=== PATIENT | male | born 1985 | race Caucasian/White ===

== ENCOUNTER 2023-07-13 07:35 | Outpatient (CLI) | payer OTHER, SELFPAY ==
--- NOTE | 2023-07-13 | ECHO_ITS ---
Patient Info Name: Baudilio Serra Age: 37 years : 1985 Gender: Male Ht: 70 in Wt: 230 lbs BSA: 2.30 m2 HR: 63 bpm BP: 139 / 93 mmHg Technical Quality: Good Exam Date: 07/13/2023 8:03 AM Exam Location: Echo Lab Patient Status: Outpatient Admit Date: 07/13/2023 Staff Ordering Physician: Buck Hernandez MD Bridge Instructor: Sharlene Stock RDCS Attending Provider: Buck Hernanedz MD Referring Physician: David HOLT; Exam Type: CA echo doppler color flow Study Info Indications R94.31 - Abnormal electrocardiogram ECG EKG Complete two-dimensional, color flow and Doppler transthoracic echocardiogram is performed. Summary 1. Complete two-dimensional, color flow and Doppler transthoracic echocardiogram is performed. 2. Left ventricular chamber dimension is normal. 3. Left ventricular systolic function is normal, estimated at 60-65%. 4. The left ventricular diastolic function is normal. 5. E/e' 5 is not elevated. 6. Global longitudinal strain is normal at -18.9%. 7. There is trace tricuspid valve regurgitation. 8. No pulmonary hypertension, estimated pulmonary arterial systolic pressure is 25 mmHg. 9. There is trace pulmonic regurgitation. Left Ventricle E/e' 5 is not elevated. Global longitudinal strain is normal at -18.9%. Left ventricular chamber dimension is normal. Left ventricular systolic function is normal, estimated at 60-65%. The left ventricular diastolic function is normal. Right Ventricle Right ventricular systolic function is normal and with normal TAPSE 2.3 cm. Right ventricular chamber dimension is normal. Left Atria Left atrial chamber dimension is normal. Right Atria Right atrial chamber dimension is normal. Aortic Valve The aortic valve is trileaflet. There is no aortic valve stenosis. There is no aortic valve regurgitation. Pulmonic Valve There is trace pulmonic regurgitation. Mitral Valve There is no mitral valve stenosis. There is no mitral valve regurgitation. Tricuspid Valve There is trace tricuspid valve regurgitation. No pulmonary hypertension, estimated pulmonary arterial systolic pressure is 25 mmHg. Pericardium/Pleural There is no pericardial effusion. Inferior Vena Cava Normal inferior vena cava with >50% collapse upon inspiration consistent with normal right atrial pressure, 5 mmHg. Aorta The aortic root size at the sinus of Valsalva is normal. Left Ventricular Outflow Tract Name Value Normal LVOT 2D LVOT Diameter 2.2 cm LVOT Doppler LVOT Peak Gradient 4 mmHg LVOT Mean Gradient 2 mmHg LVOT VTI 20 cm LVOT VTI/AV VTI Ratio 0.9 LVOT Stroke Volume 72 ml LVOT CO 4.9 l/min LVOT CI 2.1 l/min/m2 Pulmonic Valve Name Value Normal RVOT Doppler RVOT Peak Gradient 2 mmHg
--- NOTE | 2023-07-13 | EST_ITS ---
Patient Info Name: Baudilio Serra Age: 37 years : 1985 Gender: Male Ht: 70 in Wt: 230 lbs BSA: 2.30 m2 HR: 57 bpm BP: 141 / 73 mmHg Exam Date: 07/13/2023 8:37 AM Exam Location: Echo Lab Patient Status: Outpatient Admit Date: 07/13/2023 Staff Ordering Physician: Buck Hernandez MD Attending Provider: Buck Hernandez MD Exercise Technologist: Marlys Zhang RUST Exercise Physician: Gallito Rowe DO Exam Type: CA stress test treadmill Study Info A treadmill exercise stress test was performed. Summary 1. 1. Negative Calvin exercise stress test for ischemic ST changes by ECG criteria. 2. 2. Good functional capacity, achieving 12 METs of workload. 3. 3. Baseline hypertension. 4. 4. Appropriate HR response to exercise. 5. 5. Appropriate HR recovery at 1 minute post exercise. 6. 6. No imaging with stress testing. 7. 7. Patient informed of the above results. Protocol: Calvin Stress ECG Details Stage: REST Duration (min): 1 min : 18 sec Speed (mph): 0.0 Grade (%): 0 HR (bpm): 56 SBP (mmHg): 141 DBP (mmHg): 73 METS: --- Stage: REST Duration (min): 5 min : 32 sec Speed (mph): 0.0 Grade (%): 0 HR (bpm): 62 SBP (mmHg): 141 DBP (mmHg): 73 METS: --- Stage: STAGE 1 Duration (min): 1 min : 0 sec Speed (mph): 1.7 Grade (%): 10 HR (bpm): 95 SBP (mmHg): 141 DBP (mmHg): 73 METS: --- Stage: STAGE 1 Duration (min): 2 min : 0 sec Speed (mph): 1.7 Grade (%): 10 HR (bpm): 102 SBP (mmHg): 141 DBP (mmHg): 73 METS: --- Stage: STAGE 1 Duration (min): 3 min : 0 sec Speed (mph): 1.7 Grade (%): 10 HR (bpm): 103 SBP (mmHg): 152 DBP (mmHg): 57 METS: --- Stage: STAGE 2 Duration (min): 1 min : 0 sec Speed (mph): 2.5 Grade (%): 12 HR (bpm): 110 SBP (mmHg): 152 DBP (mmHg): 57 METS: --- Stage: STAGE 2 Duration (min): 2 min : 0 sec Speed (mph): 2.5 Grade (%): 12 HR (bpm): 121 SBP (mmHg): 154 DBP (mmHg): 59 METS: --- Stage: STAGE 2 Duration (min): 3 min : 0 sec Speed (mph): 2.5 Grade (%): 12 HR (bpm): 127 SBP (mmHg): 154 DBP (mmHg): 59 METS: --- Stage: STAGE 3 Duration (min): 1 min : 0 sec Speed (mph): 3.4 Grade (%): 14 HR (bpm): 134 SBP (mmHg): 158 DBP (mmHg): 56 METS: --- Stage: STAGE 3 Duration (min): 2 min : 0 sec Speed (mph): 3.4 Grade (%): 14 HR (bpm): 140 SBP (mmHg): 158 DBP (mmHg): 56 METS: --- Stage: STAGE 3 Duration (min): 3 min : 0 sec Speed (mph): 3.4 Grade (%): 14 HR (bpm): 154 SBP (mmHg): 196 DBP (mmHg): 71 METS: --- Stage: STAGE 4 Duration (min): 1 min : 0 sec Speed (mph): 4.2 Grade (%): 16 HR (bpm): 161 SBP (mmHg): 196 DBP (mmHg): 71 METS: --- Stage: STAGE 4 Duration (min): 1 min : 30 sec Speed (mph): 4.2 Grade (%): 16 HR (bpm): 179 SBP (mmHg): 196 DBP (mmHg): 71 METS: ---
--- NOTE | 2023-07-18 15:55 | WPDHOLTEREM ---
Holter/Event Monitor Holter/Event Monitor Date of procedure: 07/13/23 Holter/Event Procedure: 24 Hr Holter Monitor Indications: Abnormal EKG Conclusion: 1. 24 hour holter monitor on 07/13/23. 2. Underlying rhythm is sinus rhythm. HR range 44-108 bpm; average HR 69 bpm. HR at 44 bpm was at 03:14. 3. There are 2 premature supraventricular complexes and 1 supraventricular couplet. No supraventricular tachycardia. 4. No premature ventricular complexes. No ventricular tachycardia. 5. No sinoatrial or atrioventricular blocks. No significant pauses greater than 2 seconds. 6. Patient reports symptoms of fluttering which demonstrate sinus rhythm, HR range 78-79 bpm.
== END 2023-07-13 07:36 | disposition home or self-care (01) ==
PROVIDERS: PCP Internal Medicine; Visit Provider Internal Medicine
DX: R93.1 Abnormal findings on diagnostic imaging of heart and coronary circulation (principal); R94.31 Abnormal electrocardiogram [ECG] [EKG]; I10 Essential (primary) hypertension; I07.1 Rheumatic tricuspid insufficiency; I37.1 Nonrheumatic pulmonary valve insufficiency
CPT/HCPCS: 93017; 93225; 93226; 93306

== ENCOUNTER 2023-08-03 08:31 | Outpatient (CLI) | payer OTHER, SELFPAY ==
--- NOTE | ~2023-08-03 | XR_ITS ---
EXAMINATION: XR UGIAC w small bowel DATE: 08/03/2023 09:56 INDICATION: Gastroesophageal reflux disease, diaphragmatic hernia and intermittent episodic diarrhea and constipation. TECHNIQUE: The patient drank thick barium, gas-producing crystals, and thin barium. Conventional supi ne abdomen radiographs and fluoroscopic spot radiographs of the esophagus, stomach, and proximal smal l bowel were obtained. Additional overhead radiographs were obtained during the transit through the s mall bowel. Spot fluoroscopic images of the small bowel were obtained upon contrast reaching the cec um. Fluoroscopy exposure time was 2.1 minutes. A total of 598 fluoroscopic images and 4 overhead radi ographs were obtained. COMPARISON: None. FINDINGS: The esophagus is normal without mass or stricture. Esophageal motility is normal. There is no hiatal hernia. There was no gastroesophageal reflux with provocative maneuvers. Small diverticulum arising f rom the third portion of the duodenum. The stomach and proximal small bowel are otherwise normal. Transit time from the stomach to proximal colon was approximately 30 minutes. There is normal caliber and mucosal fold pattern throughout the small bowel. Terminal ileum is normal. No tethering or abn ormal mass effect observed upon the small bowel with real-time fluoroscopy. IMPRESSION: 1. Small diverticulum arising from third portion of the duodenum. Otherwise normal upper GI and small bowel follow-through study. Reviewed, dictated and finalized at location A. [employer] IMPRESSION: 1. Small diverticulum arising from third portion of the duodenum. Otherwise nor mal upper GI and small bowel follow-through study.
== END 2023-08-03 08:32 | disposition home or self-care (01) ==
LOC: ANHIMG 08:35
PROVIDERS: PCP Internal Medicine; Visit Provider Nurse Practitioner
DX: K57.10 Diverticulosis of small intestine without perforation or abscess without bleeding (principal); K21.9 Gastro-esophageal reflux disease without esophagitis; K22.2 Esophageal obstruction; K44.9 Diaphragmatic hernia without obstruction or gangrene
CPT/HCPCS: 74246; 74248

== ENCOUNTER 2023-09-07 08:41 | Outpatient (CLI) | payer OTHER, SELFPAY ==
--- NOTE | ~2023-09-07 | US_ITS ---
US abdomen limited DATE: 09/07/2023 10:13 INDICATION: Elevated liver enzymes TECHNIQUE: Real-time imaging and Doppler analysis of the liver, pancreas, gallbladder COMPARISON: None FINDINGS: The pancreas is not well demonstrated. Hepatic steatosis is suggested. Normal hepatopedal portal venous flow direction. No hepatic space-occ upying mass lesion is noted. No gallbladder wall thickening or gallstones or abnormal pericholecystic fluid collection. Negative s onographic Mckinney's sign. The common bile duct measures 2.7 mm, normal. IMPRESSION: Hepatic steatosis Normal gallbladder Suboptimal demonstration of the pancreas Reviewed, dictated and finalized at Location [facility]. Reviewed, dictated and finalized at location B.
== END 2023-09-07 08:42 | disposition home or self-care (01) ==
PROVIDERS: PCP Internal Medicine; Visit Provider Internal Medicine
DX: K76.0 Fatty (change of) liver, not elsewhere classified (principal); R74.01 Elevation of levels of liver transaminase levels
CPT/HCPCS: 76705

== ENCOUNTER 2023-12-12 09:22 | Emergency (ER) | payer OTHER, SELFPAY ==
--- NOTE | ~2023-12-12 | CT_ITS ---
EXAMINATION: CT brain wo con DATE: 12/12/2023 09:52 INDICATION: Headache post frontal head injury 2 days prior TECHNIQUE: Computed tomography (CT) of the head was performed without intravenous contrast. Sagittal and coronal reconstructions were performed. The mA was adjusted according to patient size. Iterative reconstruction technique was employed. The dose-length product was 605.33 mGy-cm. COMPARISON: None FINDINGS: No fracture. No acute intracranial hemorrhage, acute infarction or abnormal extra axial fluid collect ion. Ventricles are normal and symmetric. No mass/mass effect. The orbits, paranasal sinuses and mast oid air cells are normal. IMPRESSION: 1. Normal head CT. No fracture or acute intracranial process. Reviewed, dictated and finalized at location B.
[2023-12-12 09:22] VITALS: BP 130/84; PULSE 88; RESP 18; TEMP 36.3; O2SAT 94
--- NOTE | 2023-12-12 09:26 | ED.HA ---
HPI - Headache General Chief Complaint: Headache Stated Complaint: migraine; nausea/vomiting Time Seen by Provider: 12/12/23 09:25 Source: patient Mode of arrival: ambulatory Limitations: no limitations History of Present Illness HPI Narrative: year male with history anxiety GERD IBS sleep migraine she was diagnosed 18 years ago presents to the ER with a 3 day history of -- right frontal headache which started 3 days ago and responded to rizatriptan. His headache recurred again. is similar to his usual headache. In addition to headache he has photophobia. He had nausea with 3 episodes of vomiting this morning. No fever. No focal neuro deficits. MD elicited complaint: headache and migraine Pertinent past history: recent trauma ( He had right frontal trauma 2 days ago.) Onset (ago): day(s) ( Three days) Onset description: gradually Location: right Severity: moderate Quality & Timing: aching Exacerbating factors: light Relieving factors: dark room Context: occurred at rest Associated symptoms: nausea and vomiting Treatments prior to arrival: none Related Data Home Medications Medication Instructions Recorded Confirmed citalopram 10 mg tablet 10 mg PO DAILY 07/06/23 12/12/23 hydroxyzine HCl 25 mg tablet 25 mg PO TID PRN Headache 07/06/23 12/12/23 pantoprazole 40 mg tablet,delayed 40 mg PO QAM 07/06/23 12/12/23 release prazosin 2 mg capsule 2 mg PO QPM 07/06/23 12/12/23 propranolol 20 mg tablet 20 mg PO Q12H 07/06/23 12/12/23 rizatriptan 10 mg tablet See Rx Instructions PO .COMPLEX 07/06/23 12/12/23 Allergies Allergy/AdvReac Type Severity Reaction Status Date / Time No Known Allergies Allergy Verified 07/06/23 09:37 Review of Systems Review of Systems: All systems reviewed & are unremarkable except as noted in HPI and below Constitutional: Constitutional: Reports as per HPI and Reports no additional constitutional complaints Eyes: Eyes: Reports as per HPI and Reports no additional eye complaints ENT: Reports system reviewed and no additional complaints, except as documented and Reports as per HPI Cardiovascular: Cardiovascular: Reports as per HPI and Reports no additional cardiovascular complaints Respiratory: Respiratory: Reports as per HPI and Reports no additional respiratory complaints Gastrointestinal: Gastrointestinal: Reports as per HPI, Reports no additional gastrointestinal complaints, Reports nausea and Reports vomiting Genitourinary: Genitourinary: Reports no additional male genitourinary complaints and Reports as per HPI Musculoskeletal: Musculoskeletal: Reports no additional musculoskeletal complaints and Reports as per HPI Integumentary/Breasts: Skin/Breast: Reports system reviewed and no additional complaints, except as docu and Reports as per HPI Neurologic: Reports system reviewed and no additional complaints, except as documented, Reports as per HPI and Reports headache(s) Psychiatric: Psychiatric: Reports no additional psychiatric complaints and Reports as per HPI Endocrine: Endocrine: Reports no additional endocrine complaints and Reports as per HPI Hematologic/Lymphatic: Hematologic/Lymphatic: Reports no additional hematologic/lymphatic complaints and Reports as per HPI Allergic/Immunologic: Allergic/Immunologic: Reports no additional allergic/immunologic complaints and Reports as per HPI PMFSH Past Medical History Medical History Anxiety Hiatal hernia Irritable bowel syndrome with mixed bowel habits Schatzki's ring Sleep apnea Social History Social History Smoking status: Never smoker Exam Narrative: blood pressure is stable Const: General: healthy appearing Nutritional Appearance: well nourished Orientation/consciousness: patient oriented x3 Limitations: no limitations HENMT: Head: normal to inspection Ears: external ears normal Face/Nose
[2023-12-12] MEDS: PROCHLORPERAZINE EDISYLATE 10 MG/2 ML VIAL IM (09:50)
[2023-12-12] MEDS: KETOROLAC (*BKC) 60 MG/2 ML VIAL IM (09:50)
--- NOTE | 2023-12-12 10:43 | PC.NURSE ---
dr mancini in with pt.
[2023-12-12 10:44] VITALS: BP 112/57; PULSE 100; RESP 18; TEMP 36.6; O2SAT 98
== END 2023-12-12 10:44 | disposition home or self-care (01) ==
PROVIDERS: Emergency Provider Internal Medicine Critical Care Medicine; PCP Internal Medicine
DX: G43.909 Migraine, unspecified, not intractable, without status migrainosus (principal); Z79.899 Other long term (current) drug therapy
CPT/HCPCS: 70450; 90471; 96372; 99284; J0780; J1885

== ENCOUNTER 2023-12-26 21:34 | Emergency (ER) | payer OTHER, SELFPAY ==
[2023-12-26] VITALS (20 sets, daily range): BP systolic 123–163; BP diastolic 71–102; PULSE 41–82; RESP 13–24; TEMP 36.6; O2SAT 88–100
--- NOTE | ~2023-12-26 | CT_ITS ---
CORRECTED REPORT corrected exam description [facility] [place] 12/27/23 This report was recreated on 12/27/23. Original report was EXAMINATION: CTA brain carotid DATE: 12/26/2023 22:12 INDICATION: Right hemiparesis. TECHNIQUE: Computed tomographic angiography (CTA) of the head was performed without and with 100 mL Omnipaque-350 intravenous contrast. CTA of the neck was performed with intravenous contrast. Automated exposure control and iterative reconstruction technique were employed. The dose-length product was 1753.46 mGy- cm. Maximum intensity projection and volume rendered 3D-reconstructions were created by the technologist on a separate workstation. COMPARISON: Head CT 12/12/2023 FINDINGS: HEAD CTA: There is no intracranial hemorrhage, acute infarction, or abnormal intracranial mass lesion. The ventricles are normal in size. There is mild mucosal thickening in the paranasal sinuses. The orbits are normal. The mastoid air cells are normal. The vertebral arteries are codominant. There is no significant stenosis of basilar artery or the posterior cerebral arteries. There is no significant stenosis of the intracranial internal carotid arteries or anterior or middle cerebral arteries. Anterior communicating artery is normal. The posterior communicating arteries are normal. There is no aneurysm. NECK CTA: There are no pathologically enlarged lymph nodes. There is associated stenosis of the vertebral arteries. There is no significant plaque in the proximal internal carotid arteries. There is 0% stenosis of the proximal right internal carotid artery relative to normal distal artery lumen diameter (NASCET criteria). There is 0% stenosis of the proximal left internal carotid artery relative to normal distal artery lumen diameter. There is mild cervical spondylosis. IMPRESSION: 1. Normal brain. I called this result to Dr. Zepeda at 10:11 PM. 2. No aneurysm or significant intracranial arterial stenosis. 3. 0% stenosis of the proximal internal carotid arteries relative to normal distal artery lumen diameters (NASCET criteria). Reviewed, dictated and finalized at location E. MTDD IMPRESSION: 1. Normal brain. I called this result to Dr. Zepeda at 10:11 PM. 2. No aneurysm or significant intracranial arterial stenosis. 3. 0% stenosis of the proximal internal carotid arteries relative to normal dis alexa artery lumen diameters (NASCET criteria).
--- NOTE | 2023-12-26 21:37 | ED.NEUROSD ---
HPI - Neuro Symptoms/Deficit General Chief Complaint: Suspected CVA Stated Complaint: stroke like symtoms. Time Seen by Provider: 12/26/23 21:37 Source: patient Mode of arrival: ambulatory Limitations: no limitations History of Present Illness HPI Narrative: 38-year-old male a history of anxiety, migraine, GERD, IBS, ROMERO, Schatzki ring had 12/09--head injury which precipitated his migraine. 12/11-- He presented to the ER with right-sided headache and vomiting. This was different from his usual headache so he got a CT of the head which did not show any acute findings. He was discharged home. 12/13-- He went for work where he felt weak and had stroke-like symptoms. He had confusion, slurred speech and left-sided weakness. He was sent to [facility] where he had a CT / MRI did not show any acute findings. He was discharged after being admitted for 1 day. 12/18-- He went for work and had weakness, confusion possibly slurred speech. He saw his primary care physician Dr. Hernandez who advised to follow-up with [facility]. 12/23-- while showering he had left-sided weakness yesterday-- he was at work when he developed weakness and headache for which he was sent home early. Today-- patient had similar symptoms for which he went to Dr. Hernandez. He was started on topiramate 7:30 p.m.-- the patient developed tingling of the right side of the head with slurred speech. Subsequently the patient had generalized headache, Confusion and vomiting. He presented to the ER with the above symptoms. He had an NIHSS of 0. LKW-- 7:30 p.m. presented to the ED at 9:34 p.m. Onset (ago): hour(s) ( 2 hours) Time: 21:34 Last Observed Normal: 19:30 Timing confirmed by: spouse History of same: Yes Quality: weak and numb Relieving factors: none Exacerbating factors: none Context: gradual onset On Anticoagulants: No Associated symptoms: headaches and nausea/vomiting Treatments Prior to Arrival: none Related Data Home Medications Medication Instructions Recorded Confirmed citalopram 10 mg tablet 10 mg PO DAILY 07/06/23 12/26/23 hydroxyzine HCl 25 mg tablet 25 mg PO TID PRN Headache 07/06/23 12/26/23 pantoprazole 40 mg tablet,delayed 40 mg PO QAM 07/06/23 12/26/23 release prazosin 2 mg capsule 2 mg PO QPM 07/06/23 12/26/23 propranolol 20 mg tablet 20 mg PO Q12H 07/06/23 12/26/23 rizatriptan 10 mg tablet See Rx Instructions PO .COMPLEX 07/06/23 12/26/23 Allergies Allergy/AdvReac Type Severity Reaction Status Date / Time No Known Allergies Allergy Verified 12/26/23 22:11 Review of Systems Review of Systems: All systems reviewed & are unremarkable except as noted in HPI and below Constitutional: Constitutional: Reports as per HPI and Reports no additional constitutional complaints Eyes: Eyes: Reports as per HPI and Reports no additional eye complaints ENT: Reports system reviewed and no additional complaints, except as documented and Reports as per HPI Cardiovascular: Cardiovascular: Reports as per HPI and Reports no additional cardiovascular complaints Respiratory: Respiratory: Reports as per HPI and Reports no additional respiratory complaints Gastrointestinal: Gastrointestinal: Reports as per HPI and Reports no additional gastrointestinal complaints Genitourinary: Genitourinary: Reports no additional male genitourinary complaints and Reports as per HPI Musculoskeletal: Musculoskeletal: Reports no additional musculoskeletal complaints and Reports as per HPI Integumentary/Breasts: Skin/Breast: Reports system reviewed and no additional complaints, except as docu and Reports as per HPI Neurologic: Reports system reviewed and no additional complaints, except as documented and Reports as per HPI Comments: at 7:30 p.m. he had tingling on the right side with weakness, slurred speech and subsequently developed headache and vomiting. Psychiatric: Psychiatric: Reports no additional psychiatric
--- NOTE | 2023-12-26 21:39 | ECG_ITS ---
Test Date: 2023-12-26 21:40:11 Measurements Intervals [place] Rate: 58 P: 38 [place]: 158 QRS: 8 QRSD: 96 T: 21 QT: 376 QTc: 372 Interpretive Statements SINUS BRADYCARDIA BORDERLINE ECG No previous ECG available for comparison Electronically Signed On 12-27-2023 06:10:23 CDT by Gallito Rowe D.O.
[2023-12-26 21:41] LABS: Glucose Point of Care 88 mg/dl (65-105)
[2023-12-26 21:47] LABS: Basophils Absolute Auto 0.04 K/mm3 (0.00-0.10); Basophils Percent Auto 0.2 % (0.0-1.0); Eosinophils Absolute Auto 0.19 K/mm3 (0.02-0.50); Eosinophils Percent Auto 1.2 % (1.0-6.0); Hematocrit 40.9 % (40.0-54.0); Hemoglobin 14.1 g/dL (14.0-18.0); Immature Granulocyte Absolute 0.11 K/mm3 (0.00-0.00); Immature Granulocyte Percent A 0.7 % (0.0-0.0); Lymphocytes Absolute Auto 3.72 K/mm3 (1.10-4.50); Lymphocytes Percent Auto 22.9 % (18.0-42.0); Mean Corpuscular HGB Conc 34.5 g/dL (32-36); Mean Corpuscular Hemoglobin 30.2 pg (27.0-31.0); Mean Corpuscular Volume 87.6 fL (78.0-102.0); Mean Platelet Volume 9.3 fl (8.7-11.0); Monocytes Absolute Auto 1.09 K/mm3 (0.10-0.90); Monocytes Percent Auto 6.7 % (2.0-11.0); Neutrophils Absolute Auto 11.12 K/mm3 (1.70-7.20); Neutrophils Percent Auto 68.3 % (50.0-70.0); Platelet Count Result 265 K/mm3 (150-420); Red Blood Count 4.67 M/mm3 (4.70-6.10); Red Cell Distribution Width 12.3 % (11.6-14.4); White Blood Count 16.3 K/mm3 (4.8-10.8)
[2023-12-26 22:00] LABS: Partial Thromboplastin Time 27.3 Sec (23.9-30.70); Prothrombin Time 10.9 Seconds (9.50-12.1)
[2023-12-26 22:04] LABS: Alanine Aminotransferase 117 U/L (16-63); Albumin Level 4.1 g/dL (3.4-5.0); Alkaline Phosphatase 68 U/L (46-116); Anion Gap 10 mmol/L (4-12); Aspartate Amino Transferase 82 U/L (15-37); Bilirubin,Total 0.2 mg/dL (0.00-1.00); Blood Urea Nitrogen 11 mg/dL (7-18); Calcium 8.6 mg/dL (8.5-10.1); Carbon Dioxide 30 mmol/L (21-32); Chloride 102 mmol/L (98-108); Estimated CRCL calculation 92 ml/min; Estimated Glomerular Filt Rate > 60; Glucose 93 mg/dL (70-99); Osmolality Calculated 293 mOsm/kg (285-295); Potassium 3.7 mmol/L (3.5-5.1); Sodium 142 mmol/L (136-145); Total Protein 7.6 g/dL (6.4-8.2); Troponin I < 4.0 ng/L (0.00-60.4)
[2023-12-26] MEDS: ONDANSETRON INJ 4 MG/2 ML VIAL IV PUSH (22:37)
[2023-12-26] MEDS: HYDROmorphone HCL INJ (*CRX) 2 MG/ML VIAL 0.5 MG IM (22:37)
[2023-12-26] MEDS: LACTATED RINGERS 1,000 ML 999 ML IV CONT (22:37)
[2023-12-26] MEDS: GLUCAGON FOR INJ 1 MG VIAL IV PUSH (23:27)
[2023-12-27] VITALS (71 sets, daily range): BP systolic 100–155; BP diastolic 45–90; PULSE 42–96; RESP 11–32; TEMP 36.8; O2SAT 92–99
[2023-12-27] MEDS: KETOROLAC 30 MG/ML VIAL (*BKC) IV PUSH ×2 (01:19→05:14)
--- NOTE | 2023-12-27 01:25 | PC.NURSE ---
Spoke with mother of patient extensively about patients plan of care and medications. Educated on how the medications work and on admission process of other facilities. Biggest problem we are having at this time is finding a physician that will accept this patients case, due to his symptom improvement and negative work up.
--- NOTE | 2023-12-27 01:35 | PC.NURSE ---
ok with to continue to reach out to other facilities for possible admission.
--- NOTE | 2023-12-27 01:37 | PC.NURSE ---
Spoke with extensively about patient plan of care. insistent on having patient transferred to see a neurologist somewhere, she does not want to wait the 4-6 month time frame to get in to see one. Patient is to start on topamax for his migraines, however, insurance does not cover the extended release, so they are waiting on a prescription change to get his medication. is concerned that when he has his bouts of confusion during his migraines, that he will unsafely get out of the house and wander the streets or aspirate into his cpap while sleeping because of the amount that patient has been vomiting. She does not feel safe taking the patient home at this time.
[2023-12-27] MEDS: ACETAMINOPHEN 325 MG TABLET 650 MG PO (02:24)
--- NOTE | 2023-12-27 02:25 | PC.NURSE ---
DAYANARA Zepeda at bedside speaking extensively to patient and about plan of care. Dr. Clancy with Neurology with [facility] who refused the patient and is requesting patient to follow up outpatient. is still worried about how to care for patient at home with all of his symptoms. and patient further educated on complicated migraines and medications that are prescribed to help. still hopeful that [facility] will be able to give us a bed for this patient. Patient given more medications and pillows and repositioned for comfort.
[2023-12-27] MEDS: METOCLOPRAMIDE HCL INJ 10 MG/2 ML VIAL IV PUSH (02:38)
[2023-12-27] MEDS: diphenhydrAMINE HCl INJ 50 MG/ML VIAL 25 MG IV PUSH (02:38)
[2023-12-27] MEDS: SODIUM CHLORIDE 0.9% IV 500 ML 999 ML IV CONT (02:38)
--- NOTE | 2023-12-27 05:16 | PC.NURSE ---
setting up patient home cpap unit for use while patient is here.
--- NOTE | 2023-12-27 06:16 | PC.NURSE ---
spoke with mother and updated her on medications and plan of care, along with waiting on bed placement at this time.
--- NOTE | 2023-12-27 06:58 | PC.NURSE ---
mother would like to be called when patient is awake so she can come visit him [phone]. would like to be called when we get a bed assignment.
--- NOTE | 2023-12-27 07:14 | PC.NURSE ---
report given to EVA Holcomb
== END 2023-12-27 12:00 | disposition short-term general hospital (02) ==
PROVIDERS: Internal Medicine Critical Care Medicine; Emergency Provider Emergency Medicine; PCP Internal Medicine
DX: G43.111 Migraine with aura, intractable, with status migrainosus (principal); Z79.899 Other long term (current) drug therapy
CPT/HCPCS: 36415; 70496; 70498; 80053; 82948; 84484; 85025; 85610; 85730; 93005; 96361; 96372; 96374; 96375; 96376; 99285; A9270; J1170; J1200; J1610; J1885; J2405; J2765; J7040; J7120; Q9967

== ENCOUNTER 2024-01-17 12:48 | Outpatient (CLI) | payer OTHER, SELFPAY ==
--- NOTE | 2024-01-17 | ECHO_ITS ---
Patient Info Name: Baudilio Serra Age: 38 years : 1985 Gender: Male Ht: 70 in Wt: 230 lbs BSA: 2.30 m2 HR: 65 bpm BP: 113 / 73 mmHg Heart Rhythm: Sinus Rhythm Technical Quality: Good Exam Date: 01/17/2024 1:12 PM Exam Location: Echo Lab Patient Status: Outpatient Admit Date: 01/17/2024 Staff Ordering Physician: Buck Hernandez MD Cage/Vault Supervisor: Marialuisa Luque RDCS Attending Provider: Buck Hernandez MD Referring Physician: David HOLT; Exam Type: CA echo doppler w bubble study Study Info Indications - TIA Complete two-dimensional, color flow and Doppler transthoracic echocardiogram is performed with agitated saline. Summary 1. Left ventricular chamber dimension is normal. 2. Left ventricular systolic function is normal, estimated at 60-65%. 3. The left ventricular diastolic function is normal. 4. E/e' 7 is not elevated. 5. There is trace tricuspid valve regurgitation. 6. No pulmonary hypertension, estimated pulmonary arterial systolic pressure is 21 mmHg. Left Ventricle E/e' 7 is not elevated. Left ventricular chamber dimension is normal. Left ventricular systolic function is normal, estimated at 60-65%. The left ventricular diastolic function is normal. Right Ventricle Right ventricular systolic function is normal and with normal TAPSE 2.8 cm. Right ventricular chamber dimension is normal. Left Atria Left atrial chamber dimension is normal. Right Atria Right atrial chamber dimension is normal. Atrial Septum Agitated saline injection with and without valsalva maneuver opacified right side cardiac chambers without shunt to left side cardiac chambers. Intact interatrial septum visualized by 2D and agitated saline imaging. Aortic Valve The aortic valve is trileaflet. There is no aortic valve stenosis. There is no aortic valve regurgitation. Pulmonic Valve There is no pulmonic regurgitation. Mitral Valve There is no mitral valve stenosis. There is no mitral valve regurgitation. Tricuspid Valve There is trace tricuspid valve regurgitation. No pulmonary hypertension, estimated pulmonary arterial systolic pressure is 21 mmHg. Pericardium/Pleural There is no pericardial effusion. Inferior Vena Cava Normal inferior vena cava with >50% collapse upon inspiration consistent with normal right atrial pressure, 5 mmHg. Aorta The aortic root size at the sinus of Valsalva is normal. Left Ventricular Outflow Tract Name Value Normal LVOT 2D LVOT Diameter 2.0 cm LVOT Doppler LVOT Peak Gradient 4 mmHg LVOT Mean Gradient 2 mmHg LVOT VTI 21 cm LVOT VTI/AV VTI Ratio 0.8 LVOT Stroke Volume 63 ml LVOT CO 3.3 l/min LVOT CI 1.4 l/min/m2 Pulmonic Valve Name Value Normal PV Doppler PV Peak Gradient 2
== END 2024-01-17 12:49 | disposition home or self-care (01) ==
LOC: ANHCARD 12:50
PROVIDERS: PCP Internal Medicine; Visit Provider Internal Medicine
DX: G45.9 Transient cerebral ischemic attack, unspecified (principal)
CPT/HCPCS: 93306; 96375